=== PATIENT | female | born 1955 | race Caucasian/White ===

== ENCOUNTER → 2018-01-15 | Outpatient (CLI) | payer OTHER | LOC: MAMMO 13:45 → EDBD 13:45 → MAMMO 14:32 | DX: Z12.31 Encounter for screening mammogram for malignant neoplasm of breast (principal) ==

== ENCOUNTER → 2023-05-16 | Outpatient (CLI) | payer MEDICARE, OTHER ==
[2023-05-16 15:46] LABS: BASO # 0.02 K/mm3 (0.02-0.10); EOS # 0.11 K/mm3 (0.04-0.40); EOS % 1.5 % (1.0-5.0); HEMATOCRIT 40.6 % (37.0-47.0); HEMOGLOBIN 13.2 g/dL (12.5-16.0); LYMPH# 2.15 K/mm3 (1.50-4.00); MEAN CELL VOLUME 91 fl (78-100); MEAN CORPUSCULAR HEMOGLOBIN 30 pg (27-31); MEAN CORPUSCULAR HGB CONC 33 g/dL (33-37); MEAN PLATELET VOLUME 10.6 fl (7.4-10.4); MONO # 0.37 K/mm3 (0.20-0.80); NEU # 4.78 K/mm3 (1.40-6.50); RED BLOOD COUNT 4.44 M/mm3 (4.10-5.30); RED CELL DISTRIBUTION WIDTH 11.7 % (11.5-14.5); WHITE BLOOD COUNT 7.5 K/mm3 (4.8-10.8)
[2023-05-16 15:59] LABS: ALBUMIN 4.2 g/dL (3.4-4.8)
[2023-05-16 16:00] LABS: CALCIUM 9.9 mg/dL (8.3-10.5)
[2023-05-16 16:03] LABS: TOTAL BILIRUBIN 0.3 mg/dL (0.2-1.2)
[2023-05-16 16:08] LABS: MAGNESIUM 2.03 mg/dL (1.60-2.60)
[2023-05-16 17:27] LABS: PLATELET COUNT 221 K/mm3 (130-400)
[2023-05-16 22:29] LABS: FOLATE (FOLIC ACID) 13.5 ng/mL (2.0-20.0)
== END ==
LOC: LAB 15:13
PROVIDERS: Internal Medicine
DX: M85.80 Other specified disorders of bone density and structure, unspecified site (principal); E78.2 Mixed hyperlipidemia; K90.9 Intestinal malabsorption, unspecified; R73.9 Hyperglycemia, unspecified